=== PATIENT | female | born 1990 | race Caucasian/White ===

== ENCOUNTER 2021-02-17 13:10 | Emergency (ER) | payer OTHER ==
[2021-02-17 14:16] LABS: BASOPHIL 0.3 % (0-2); EOSINOPHIL 0.9 % (0-5); HCT 33.9 % (37.0-47.0); HGB 11.2 g/dl (12.5-16.0); LYMPHOCYTE 18.9 % (15-48); MCH 28.6 pg (25.0-31.0); MCV 86.5 fL (78.0-100.0); MONOCYTE 7.7 % (0-12); MPV 11.1 fL (6.0-9.5); NEUTROPHIL 71.5 % (41-80); NRBC 0; PLT 345 K/uL (150-400); RBC 3.92 M/uL (4.20-5.40); RDW 14.3 % (11.5-14.0)
[2021-02-17 14:25] LABS: BUN/CREAT RATIO (CALC) 16.4 RATIO; CREATININE 0.73 mg/dL (0.51-0.95); POTASSIUM 3.8 mmol/L (3.5-5.1)
[2021-02-17 15:40] LABS: BILIRUBIN 1+ mg/dL (NEGATIVE); BLOOD 3+ Ery/uL (NEGATIVE); CLARITY CLEAR (CLEAR); COLOR ORANGE (YELLOW); GLUCOSE (U) NORMAL (NORMAL); LEUKOCYTES NEGATIVE Leu/uL (NEGATIVE); NITRITE NEGATIVE (NEGATIVE); PROTEIN 2+ mg/dL (NEGATIVE); SPECIFIC GRAVITY >=1.030 (1.001-1.030); UROBILINOGEN 0.2 mg/dL (0.2-1.0); pH 5.5 (5.0-9.0)
[2021-02-17 15:57] LABS: AMORPHOUS URATES CRYSTALS TRACE; BACTERIA TRACE; CALCIUM OXALATE CRYSTALS MODERATE
== END 2021-02-17 15:55 | disposition home or self-care (01) ==
LOC: FER 13:10
PROVIDERS: Nurse Practitioner Family
DX: O20.9 Hemorrhage in early pregnancy, unspecified (principal); Z3A.14 14 weeks gestation of pregnancy
CPT/HCPCS: 36415; 80048; 81001; 85025; 99283; J7030

== ENCOUNTER → 2022-06-07 | Day surgery (SDC) | payer OTHER ==
[~2022-06-07] VITALS: Ht 165.1 cm; Wt 84.4 kg
[~2022-06-07] MED LIST: ACETAMINOPHEN500 M1 PO; BIRTH CONTROL; COLACE100 MG PO; MIRALAX17 GM PO; MOTRIN600 MG PO; OXY-IR 5MG5 MG PO; PHENTERMINE HCL15 MG PO
[2022-06-07 11:55] LABS: HCG (URINE) SCREEN NEGATIVE (NEGATIVE)
== END | disposition home or self-care (01) ==
LOC: FAS 10:48
PROVIDERS: Student in an Organized Health Care Education/Training Program
DX: K64.5 Perianal venous thrombosis (principal)
CPT/HCPCS: 84703; J0690; J0735; J1100; J1644; J1885; J2250; J2405; J2704; J3010; J7120